=== PATIENT | female | born 1985 | race African-American/Black ===

== ENCOUNTER 2016-10-23 11:08 | Emergency (ER) ==
[2016-10-23 11:24] VITALS: BP 112/072
[2016-10-23 11:27] LABS: MANUAL DIFF NEEDED? NO
[2016-10-23 11:27] LABS: URINE CULTURE PL NEEDED? NO; URINE SOURCE CLEAN CATCH
[2016-10-23 11:29] LABS: BASO% 0.5 % (0.0-0.8); EOS% 1.6 % (0.0-10.0); HEMOGLOBIN 12.8 g/dL (12.0-16.0); LYMPH# 2.13 X1000 (1.2-3.4); LYMPH% 33.1 % (20.5-51.1); MCH 28.3 PG (27-31); MCHC 32.8 g/dL (33-37); MCV 86.3 FL (81-99); MONO# 0.55 X1000 (0.11-0.59); MONO% 8.6 % (1.7-9.3); MPV 9.5 FL (7.4-10.4); NEUT% 56.2 % (42.2-75.2); PLT 308 X1000 (130-400); RBC 4.52 XMIL (4.2-5.4)
[2016-10-23 11:32] LABS: BILIRUBIN URINE NEGATIVE (NEGATIVE); BLOOD URINE 1+ (NEGATIVE); CLARITY SL. CLOUDY (CLEAR); COLOR YELLOW; GLUCOSE URINE NEGATIVE (NEGATIVE); LEUKOCYTES URINE NEGATIVE (NEGATIVE); NITRITE URINE NEGATIVE (NEGATIVE); PROTEIN URINE TRACE mg/dL (NEGATIVE); SP GRAVITY URINE 1.015; UROBILINOGEN URINE NORMAL
[2016-10-23 11:42] LABS: URINE EPITHELIAL CELLS <10 /HPF (<10); URINE WBC <10 /HPF (<10)
[2016-10-23 11:50] LABS: AGAP 10; ALBUMIN 4.7 g/dL (3.5-5.0); ALKALINE PHOSPHATASE 91 U/L (32-104); AMYLASE 78 U/L (20-200); BUN 14 mg/dL (8-22); CALCIUM 9.4 mg/dL (8.8-10.2); CHLORIDE 105 mmol/L (98-107); COSMO 280; GOT 18 U/L (10-30); GPT 15 U/L (10-36); LIPASE 27 U/L (13-60); POTASSIUM 3.6 mmol/L (3.5-5.1); SODIUM 141 mmol/L (136-145); TCO2 26 mmol/L (25-35); TOTAL PROTEIN 8.2 g/dL (6.3-8.3)
--- NOTE | 2016-10-23 12:14 | PROVIDER DOCUMENTATION ---
HPI-Abdominal Pain/GI Problem - General Chief Complaint: N/V/D Stated Complaint: N/V/D Time Seen by Provider: 10/23/16 11:59 Source: patient Allergies/Adverse Reactions: Patient Allergies Allergy/AdvReac Type Severity Reaction Status Date / Time sulfamethoxazole Allergy Mild ITCHING Verified 08/30/16 09:53 [From Bactrim] trimethoprim [From Bactrim] Allergy Mild ITCHING Verified 08/30/16 09:53 cephalexin monohydrate * Allergy ITCHING Verified 08/30/16 09:53 [From Keflex] - History of Present Illness-ABD Nature of Presenting Problems: 31 yo F presents to ED with cc of n/v x 3 days with 3-4 episodes a day of each. Pt reports no sick contacts. Pt works in food and nutrition teacher. Upon arrival to ED, pt is in no apparent distress and appears nontoxic. Abdominal Pain Onset Location: reports: generalized abdomen Pain Radiation: reports: no radiation Quality of Pain: reports: cramping Onset/Duration: reports: 3 days ago, 4 days ago Timing: reports: still present Activities at Onset: reports: none Exposure to sick contacts?: No Modifying Factors: improves with: nothing Associated Symptoms: reports: diarrhea, vomiting Last BM: this morning Dark Stools Present?: reports: none noticed Rectal Bleeding: reports: none # of Diarrhea Episodes: 3 (per day) # of Vomiting Episodes: 3 (per day) Bruising or Bleeding Gums?: No Review of Systems - Adult - REVIEW OF SYSTEMS - ADULT Constitutional: reports: no symptoms reported. denies: chills, fever Eyes: reports: no symptoms reported. denies: discharge, dry eyes Ears, Nose, Mouth & Throat: reports: no symptoms reported. denies: ear discharge, ear pain Cardiovascular: reports: no symptoms reported. denies: chest pain, heart murmur Respiratory: reports: no symptoms reported. denies: cough, dyspnea on exertion Gastrointestinal: reports: abdominal pain, nausea, vomiting Genitourinary: reports: no symptoms reported. denies: dysuria, discharge Musculoskeletal: reports: no symptoms reported. denies: bone pain, back pain Integumentary: reports: no symptoms reported. denies: hives, itching Neurological: reports: no symptoms reported. denies: ataxia, numbness Psychiatric: reports: no symptoms reported. denies: anxiety, depression Endocrine: reports: no symptoms reported. denies: cold intolerance, heat intolerance Hematologic/Lymphatic: reports: no symptoms reported. denies: blood clots, easy bruising Allergic/Immunologic: reports: no symptoms reported. denies: allergic reactions , eczema All Other Systems: Reviewed and Negative Past History - Adult - PAST MEDICAL HISTORY-ADULT Review of Records: reports: Old Records Reviewed, Nursing Assessment Review, Medications Reviewed Major Childhood Illnesses: reports: denies history Cardiovascular: reports: denies history Respiratory: reports: denies history Gastrointestinal: reports: denies history Obstetrical/Gynecological: reports: denies history Genitourinary: reports: denies history Musculoskeletal: reports: denies history Neurological: reports: denies history Endocrine/Immune: reports: denies history Other Conditions: reports: denies history - PRIOR SURGERIES/PROCEDURES Surgical/Procedure History: reports: - PRIOR HOSPITALIZATIONS Prior Hospitalizations: reports: for other non-related - IMMUNIZATION STATUS Childhood Immunizations: See Nurse Assessment Flu Vaccine: See Nurse Assessment - FAMILY HISTORY Family History: reviewed, not pertinent Physical Exam-General - PHYSICAL EXAM-ADULT Initial Vital Signs Reviewed: Yes - CONSTITUTIONAL General Appearance: appears well, alert, no apparent distress - EYES Eyes: PERRL/EOMI, pink conjunctivae - HEAD, EARS, NOSE, MOUTH & THROAT HENMT: normocephalic/atraumatic, moist mucous membranes - NECK Neck: non-tender, full range of motion - RESPIRATORY Respiratory: no respiratory distress, no accessory muscle use - CARDIOVASCULAR Cardiovascular: normal peripheral pulses, regular rate, rhythm - GASTROINTESTINAL (ABDOMEN) Abdominal Exam: normal bowel sounds, non tender, soft - LYMPHATIC Lymphatic: no adenopathy - MUSCULOSKELETAL Back Exam: normal inspection, no CVA tenderness, no vertebral tenderness Extremity: normal range of motion, non-tender, normal gait - SKIN Integumentary: normal color, normal turgor, warm/dry - NEUROLOGIC Neurologic: grossly normal, no motor/sensory deficits - PSYCHIATRIC Psych/Mental Status: normal mood/affect, normal thought content, normal thought process, oriented x 3 Progress - PLAN OF CARE/RESULTS Progress/Plan/Lab Results: Vital Signs - 24 hr 10/23/16 10/23/16 11:13 11:22 Temperature 99.1 F Pulse Rate 121 H Pulse Rate [ 113 H Sitting] Pulse Rate [ 120 H Standing] Pulse Rate [ 103 H Supine] Respiratory 18 Rate Blood Pressure 111/66 Blood Pressure 110/076 [Sitting] Blood Pressure 111/069 [Standing] Blood Pressure 112/072 [Supine] O2 Sat by Pulse 100 Oximetry Orders Category Date Time Status Saline Loc DIRECTED Care 10/23/16 11:15 Active NPO Diet 10/23/16 11:15 Active FLAT/UPRIGHT ABD/1 VIEW CHEST [RAD] Stat Exams 10/23/16 11:16 Ordered AMYLASE [CHEM] Stat Lab 10/23/16 11:21 Completed CBC WITH ELECTRONIC DIFF [HEME] Stat Lab 10/23/16 11:21 Completed COMPREHENSIVE METABOLIC PANEL [CHEM] Stat Lab 10/23/16 11:21 Completed LIPASE [CHEM] Stat Lab 10/23/16 11:21 Completed TEST-URINE [PREG] Stat Lab 10/23/16 11:[address] W/POSS RFLX CULT [URINALYSIS] Stat Lab 10/23/16 11:15 Completed Laboratory Tests 10/23/16 10/23/16 10/23/16 11:15 11:15 11:21 WBC RBC Hgb Hct MCV MCH MCHC RDW Std Deviation Plt Count MPV Immature Gran % (Auto) Neut % (Auto) Lymph % (Auto) [place] % (Auto) Eos % (Auto) Baso % (Auto) Immature Gran # (Auto) Neut # (Auto) Lymph # (Auto) [place] # (Auto) Eos # (Auto) Baso # (Auto) Sodium 141 Potassium 3.6 Chloride 105 Carbon Dioxide 26 Anion Gap 10 BUN 14 Creatinine 0.5 Estimated GFR/1.73 m2 > 60 BUN/Creatinine Ratio 28 Glucose 76 Calculated Osmolality 280 Calcium 9.4 Total Bilirubin 0.20 AST 18 ALT 15 Alkaline Phosphatase 91 Total Protein 8.2 Albumin 4.7 Globulin 4.0 Albumin/Globulin Ratio 1.0 Amylase 78 Lipase 27 Urine Source CLEAN CATCH Urine Color YELLOW Urine Clarity SL. CLOUDY A Urine pH 5.0 Ur Specific Round O 1.015 Urine Protein TRACE A Urine Ketones NEGATIVE Urine Blood 1+ A Urine Nitrite NEGATIVE Urine Bilirubin NEGATIVE Urine Urobilinogen NORMAL Urine Microscopic RBC 10-20 A Urine WBC NEGATIVE Urine Microscopic WBC <10 Ur Epithelial Cells <10 Urine Bacteria 1+ Urine Glucose NEGATIVE Urine Test NEGATIVE 10/23/16 11:21 WBC 6.43 RBC 4.52 Hgb 12.8 Hct 39.0 MCV 86.3 MCH 28.3 MCHC 32.8 L RDW Std Deviation 12.9 Plt Count 308 MPV 9.5 Immature Gran % (Auto) 0.0 Neut % (Auto) 56.2 Lymph % (Auto) 33.1 [place] % (Auto) 8.6 Eos % (Auto) 1.6 Baso % (Auto) 0.5 Immature Gran # (Auto) 0.00 Neut # (Auto) 3.62 Lymph # (Auto) 2.13 [place] # (Auto) 0.55 Eos # (Auto) 0.10 Baso # (Auto) 0.03 Sodium Potassium Chloride Carbon Dioxide Anion Gap BUN Creatinine Estimated GFR/1.73 m2 BUN/Creatinine Ratio Glucose Calculated Osmolality Calcium Total Bilirubin AST ALT Alkaline Phosphatase Total Protein Albumin Globulin Albumin/Globulin Ratio Amylase Lipase Urine Source Urine Color Urine Clarity Urine pH Ur Specific Round [place] Urine Protein Urine Ketones Urine Blood Urine Nitrite Urine Bilirubin Urine Urobilinogen Urine Microscopic RBC Urine WBC Urine Microscopic WBC Ur Epithelial Cells Urine Bacteria Urine Glucose Urine Test - XRAY 1 XRAY Study: Abdomen Impression: Abnormal XRAY Interpretation: constipation indicated. no obstruction (per radiology) Departure - Departure Time of Disposition Order: 12:13 DIAGNOSIS: Nausea & vomiting Qualifiers: Vomiting type: unspecified Vomiting Intractability: non-intractable Qualified Code(s): R11.2 - Nausea with vomiting, unspecified Disposition: HOME 01 Certified Medical Emergency: Emergent Condition: Stable Additional Instructions: ED Follow Up Instructions: You have been treated by a care provider in the Emergency Department. These instructions are being provided to you so you can have an understanding of how to care for yourself upon discharge. Upon discharge from the Emergency Department, you are responsible for making arrangements for follow-up care by a physician of your choice. Take all prescribed medications as directed. Return to the Emergency Department immediately for any new or worsening symptoms. You may call the Physician Referral phone number at [phone] to obtain a list of Physicians who are taking new patients. Prescriptions: Diphenoxylate/Atropine [Lomotil] 1 each PO 4XDAY PRN PRN #20 tablet PRN Reason: Diarrhea Promethazine [Phenergan] 1 - 2 tab PO Q6H PRN PRN #18 tablet PRN Reason: Vomiting Referrals: None,PCP [Primary Care Provider] - Hamzah Hills MD [STAFF PHYSICIAN] - Forms: Return to School/Parent Work Instructions: Viral Gastroenteritis, Promethazine tablets Attestation - Scribe Verification/Attestation Scribe:: Elda Fernandez Acting as Scribe for:: Mariano Melendez Scribe documention review:: This chart was documented by a scribe and accurately reflects the service the provider performed and the decisions made by the provider. - Physician/ Mid-level Attestation Patient care was provided by Mid-level provider (TELEPHONY ENGINEER/PA):: No
--- NOTE | 2016-10-23 12:58 | Diag Imaging Result Document ---
PROCEDURE NAME: FLAT/UPRIGHT ABD/1 VIEW CHEST - 10/23/2016 PLAIN RADIOGRAPHS OF THE CHEST AND ABDOMEN, 3 VIEWS: COMPARISON: None available. FINDINGS: There is a fairly large amount of stool in the colon suggesting moderate constipation. There is no obstructive bowel pattern. There is no evidence of large-volume free abdominal gas. There is no discrete organomegaly. Lungs are clear and cardiac silhouette is unremarkable. IMPRESSION: Suggestion of constipation.
== END 2016-10-23 12:23 | disposition home or self-care (01) ==
LOC: P.ED 11:08
DX: R11.2 Nausea with vomiting, unspecified (principal); R19.7 Diarrhea, unspecified; R10.84 Generalized abdominal pain
CPT/HCPCS: 36415; 74022; 80053; 81001; 81025; 82150; 83690; 85025; 99283